=== PATIENT | female | born 1940 | race Caucasian/White ===

== ENCOUNTER 2017-12-30 09:28 | Day surgery (SDC) | payer MEDICARE ==
[2017-12-27 11:31] VITALS: BMI 25.0
--- NOTE | 2017-12-30 06:34 | HP ---
HISTORY AND PHYSICAL CHIEF COMPLAINT: Perforation of the right tympanic membrane. HISTORY OF PRESENT ILLNESS: This patient is a 77-year-old female who was recently seen in my office for evaluation of decreased hearing in the right ear. It is to be noted the patient was seen in in 2009 and at that time underwent insertion of a Kartush patch. The patient had done well, but was subsequently lost to follow up. She recently noted that the hearing in the right ear had significantly decreased. At the time that she was seen in the office, clinical examination of the ear revealed the patch had dislodged and that she once again had an open central perforation encompassing approximately 20% of the right tympanic membrane. Middle ear space appeared to be free of any cholesteatoma or infection and the middle ear ossicles appear to be intact. It was recommended the patient undergo re-insertion of a Kartush patch under either IV sedation with MAC or a general anesthesia, depending upon the anesthesia department's preference. PAST MEDICAL HISTORY: Past medical history reveals the patient has no known allergies to medications. Her current medications include atenolol, levothyroxine, glimepiride, losartan, atorvastatin, trazodone, Advil, and multiple vitamins. PREVIOUS SURGERIES: Previous surgeries include insertion of a right Kartush patch, bilateral cataract surgery, colonoscopy, and partial hysterectomy. She is 2 para, 2 , 0 miscarriage. REVIEW OF SYSTEMS: Cardiovascular is positive for hypertension. Respiratory is negative. Metabolic endocrine is positive for hypercholesterolemia, type 2 diabetes mellitus and hypothyroidism. The remainder of the review of systems is essentially unremarkable. PHYSICAL EXAMINATION: This patient is a very pleasant 77-year-old female who is alert and cooperative. HEENT EXAMINATION: Patient is normocephalic. Left tympanic membrane is unremarkable. Right tympanic membrane has a central perforation. Pupils are equal, round, react to light accommodation. Extraocular movements are within normal limits. Intranasal examination reveals moderate to severe septal deviation with compensatory hypertrophy of the inferior turbinates bilaterally. Examination of oropharynx, palpation of the neck, cranial nerves 2 through 12 and the remainder of the head and neck exam are within normal limits. CHEST/CARDIOVASCULAR: Both lung gray are clear to percussion and auscultation. The patient is in regular sinus rhythm, S1, S2 present. No murmurs, S3s or S4s. Peripheral pulses are bilaterally symmetrical and within normal limits. ABDOMEN: There is no evidence of any masses, megaly, or tenderness. The abdomen is soft. Skin is unremarkable. Musculoskeletal and neurological are within normal limits. PELVIC/RECTAL EXAMINATION: The pelvic rectal exam is deferred at this time because the patient has this done on a regular basis at her family physician's office. The remainder of the physical exam is unremarkable. IMPRESSION: Perforation of the right tympanic membrane. PLAN: The patient is scheduled undergo insertion of a Kartush patch under either IV sedation with MAC or general anesthesia, depending upon the anesthesia department's preference. ATTENTION RNS IN THE PRE-SURGICAL AREA: I have not ordered any pre-surgical prophylactic antibiotics for this patient. If the pharmacy department sends any pre- surgical prophylactic antibiotics to the pre-surgical area for this patient, that order should be cancelled and the medication should be returned to the pharmacy department. Please make sure that the pharmacy department credits the patient's account appropriately. I have discussed the risks, benefits and alternative therapies for the above-mentioned procedure and for both sedation/analgesia as well as necessary blood product administration, if indicated, as they pertain to this patient. The patient has indicated his or her understanding and acceptance of the risks and procedures discussed. MMODL / IJN: [id number] /
[~2017-12-30 09:28] MED LIST: LACTATED RINGERS 1,000 ML IV SCH; Pre Op ABX Message 1 EACH MISC MISCELLANE ONE
[2017-12-30 11:13] VITALS: RESP 18; TEMP 98.4
[2017-12-30 11:15] LABS: Glucose,Whole Blood 132 mg/dL (75-99)
[2017-12-30] MEDS ORDERED: LIDOCAINE 1% 20 ML VIAL (10MG/ML) FOR IV START INTRADERMA ONE (11:17)
[2017-12-30] MEDS ORDERED: PROPOFOL 10 MG/ML 20 ML VIAL IV ONE (11:45)
[2017-12-30] MEDS ORDERED: MIDAZOLAM 2 MG/2 ML VIAL ONE (11:45)
[2017-12-30] MEDS ORDERED: fentaNYL (PF) 50 MCG/ML 2 ML AMP ONE (11:45)
[2017-12-30] MEDS ORDERED: LIDOCAINE 1% INJ 10MG/ML (20 ML MDV) ONE (11:45)
[2017-12-30] MEDS ORDERED: OFLOXACIN 0.3% OPHTH DROPS 5 ML BOTTLE RIGHT EAR ONE ×2 (11:58→12:19)
[2017-12-30 13:22] LABS: Glucose,Whole Blood 109 mg/dL (75-99)
[2017-12-30 13:28] VITALS: BP 162/72; PULSE 85
--- NOTE | 2018-01-05 12:02 | OP ---
OPERATIVE REPORT DATE OF SURGERY: 12/30/2017 PREOPERATIVE DIAGNOSIS: Perforation of the right tympanic membrane. POSTOPERATIVE DIAGNOSIS: Perforation of the right tympanic membrane. ANESTHESIA: IV sedation with MAC. OPERATIVE PROCEDURE: Insertion of a 5 mm Kartush patch to a perforation of the right tympanic membrane. OPERATING SURGEON: Dr. Hauser. COMPLICATIONS: None. OPERATIVE PROCEDURE: Patient was placed on operating table in supine position and after an uneventful IV sedation, satisfactory sedation was obtained. Next, the patient's right ear was draped in the usual customary fashion. Next, using the Zeiss operating microscope and a #3 aural speculum, the right external auditory canal was cleansed of all wax and debris. Next, a 5 mm Kartush patch was inserted in the perforation of the right tympanic membrane using a pair of Jeromy forceps. At this point, the procedure was terminated. There were no intraoperative complications. Patient tolerated procedure well and was returned to recovery room in satisfactory condition indication. MMODL / IJN: [id number] /
== END 2017-12-30 14:00 | disposition home or self-care (01) ==
LOC: OR 09:28
PROVIDERS: ATTEND Otolaryngology
DX: H72.91 Unspecified perforation of tympanic membrane, right ear (principal); I10 Essential (primary) hypertension; E78.00 Pure hypercholesterolemia, unspecified; E11.9 Type 2 diabetes mellitus without complications; E03.9 Hypothyroidism, unspecified; Z79.84 Long term (current) use of oral hypoglycemic drugs; Z79.1 Long term (current) use of non-steroidal anti-inflammatories (NSAID); Z79.890 Hormone replacement therapy; Z79.899 Other long term (current) drug therapy
CPT/HCPCS: 69610; J2250; J2001; J3010; J2704

== ENCOUNTER 2018-10-17 12:23 | Inpatient (IN) | payer MEDICARE ==
[2018-10-17] MEDS ORDERED: DEXTROSE 50%-WATER 50 ML SYRINGE IVP STA (12:46)
[2018-10-17 12:54] LABS: Glucose,Whole Blood 62 mg/dL (75-99)
--- NOTE | 2018-10-17 13:03 | ED ---
General Adult HPI - General Chief complaint: Syncope Stated complaint: fall Time Seen by Provider: 10/17/18 12:27 Source: patient Mode of arrival: EMS Limitations: physical limitation - History of Present Illness Initial comments: Dictation was produced using [employer] dictation software. please excuse any grammatical, word or spelling errors. Chief Complaint: 78-year-old female past medical history of non-insulin- dependent diabetes mellitus, hearing disorder, hypertension, dyslipidemia presents with fall. History of Present Illness: Patient is 78-year-old female presents after fall. EMS arrived on scene and found the patient had a blood glucose of 44. Patient does not take insulin. She takes a sulfonylurea for blood sugar control. Patient states she does not know how long she was down to around 4. She is not sure if she lost consciousness. She was able to crawl to a phone to notify her daughter who lives approximately 20 minutes away. EMS was called patient's transfer to emergency department. Patient complains of total body pain. She does complain of however worsening pain to the left humerus and left femur. Patient has a normal tremor however her tremors worse today per her daughter. The ROS documented in this emergency department record has been reviewed and confirmed by me. Those systems with pertinent positive or negative responses have been documented in the HPI. All other systems are other negative and/or noncontributory. PHYSICAL EXAM: General Impression: Alert and oriented x3, not in acute distress, tremulous HEENT: Normocephalic atraumatic, extra-ocular movements intact, pupils equal and reactive to light bilaterally, mucous membranes moist. Cardiovascular: Heart regular rate and rhythm, S1&S2 audible, no murmurs, rubs or gallops Chest: Lungs clear to auscultation bilaterally, no rhonchi, no wheeze, no rales Abdomen: Bowel sounds present, abdomen soft, non-tender, non-distended, no organomegaly Musculoskeletal: Pulses present and equal in all extremities, no peripheral edema, all extremities ranged and removed without complications Motor: Power 5/5 bilaterally, no focal deficits noted Neurological: CN II-XII grossly intact, no focal motor or sensory deficits noted Skin: Intact with no visualized rashes Psych: Normal affect and mood ED course: 78-year-old female presents after fall. She is also has hypoglycemia. She was given oral glucose by EMS with improvement of blood sugar however her sugar dropped again. Vital signs upon arrival are within acceptable limits. Patient's glucose in the emergency department was rechecked found to be 62. Patient given oral and IV dextrose.Laboratory evaluation obtained. CBC, metabolic panels obtained and found to be unremarkable. Patient does have mild elevation crowding kinase likely secondary to non- exertional rhabdo mildly. Urinalysis shows mild dehydration. There is 10 white blood cells. Patient's serial blood glucose is improved. Attempt was made to send patient home however she felt too weak and didn't fill comfortable at home given that she lives at home by herself. Patient is unable to ambulate without complications. Given patient fall risk and social situation we'll plan to have patient admitted for physical therapy, blood glucose monitoring, intravenous rehydration. Imaging studies were obtained. CT head, C-spine, chest x-ray, pelvis x-ray, left humerus and left femur x-rays were all negative for acute traumatic processes. EKG interpretation: Ventricular rate 80, normal sinus rhythm, WA interval 156, QS 80, QTc 431. No WA prolongation, no QTC prolongation, no ST or T-wave changes noted. Overall, this EKG is unremarkable - Related Data Home Medications Medication Instructions Recorded Confirmed Aspirin [Adult Low Dose Aspirin EC] 81 mg PO DAILY 12/27/17 10/17/18 Atenolol/Chlorthalidone 1 each PO DAILY 12/27/17 10/17/18 [Atenolol-Chlorthalidone 50-25] Atorvastatin Calcium [Lipitor] 10 mg PO HS 12/27/17 10/17/18 Calcium Citrate/Vitamin D3 1 tab PO HS 12/27/17 10/17/18 [Calcitrate + Vit D Caplet] Glimepiride [Amaryl] 1 mg PO AC-BID 12/27/17 10/17/18 Levothyroxine Sodium [Synthroid] 88 mcg PO DAILY 12/27/17 10/17/18 Losartan Potassium [Cozaar] 100 mg PO DAILY 12/27/17 10/17/18 Multivit-Min/FA/Lycopen/Lutein 1 each PO DAILY 12/27/17 10/17/18 [Centrum Silver Tablet] buPROPion HCL [buPROPion HCL SR] 150 mg PO BID 12/27/17 10/17/18 traZODone HCL [Desyrel] 100 mg PO HS 12/27/17 10/17/18 Allergies Allergy/AdvReac Type Severity Reaction Status Date / Time No Known Allergies Allergy Verified 10/17/18 14:03 Review of Systems ROS Statement: Those systems with pertinent positive or pertinent negative responses have been documented in the HPI. ROS Other: All systems not noted in ROS Statement are negative. 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 History of Any Multi-Drug Resistant Organisms: None Reported Past Surgical History: Ear Surgery, Hysterectomy Additional Past Surgical History / Comment(s): RT EAR SURG. Past Anesthesia/Blood Transfusion Reactions: No Reported Reaction Past Psychological History: Depression Smoking Status: Former smoker Past Alcohol Use History: None Reported Past Drug Use History: None Reported - Past Family History Brother(s) Family Medical History: Cancer General Exam Limitations: physical limitation Course Vital Signs 10/17/18 10/17/18 10/17/18 12:38 13:51 15:00 Temperature 98.3 F Pulse Rate 75 77 74 Respiratory 18 20 18 Rate Blood Pressure 173/79 175/98 159/121 O2 Sat by Pulse 99 100 98 Oximetry 10/17/18 16:39 Temperature Pulse Rate 80 Respiratory 18 Rate Blood Pressure 164/79 O2 Sat by Pulse 98 Oximetry Medical Decision Making - Lab Data Result diagrams: 10/17/18 13:05 10/17/18 13:05 Lab Results 10/17/18 10/17/18 10/17/18 Range/Units 12:34 13:05 13:05 WBC 4.0 (3.8-10.6) k/uL RBC 4.29 (3.80-5.40) m/uL Hgb 13.6 (11.4-16.0) gm/dL Hct 41.4 (34.0-46.0) % MCV 96.5 (80.0-100.0) fL MCH 31.8 (25.0-35.0) pg MCHC 32.9 (31.0-37.0) g/dL RDW 13.3 (11.5-15.5) % Plt Count 122 L (150-450) k/uL Neutrophils % 79 % Lymphocytes % 10 % Monocytes % 8 % Eosinophils % 1 % Basophils % 0 % Neutrophils # 3.1 (1.3-7.7) k/uL Lymphocytes # 0.4 L (1.0-4.8) k/uL Monocytes # 0.3 (0-1.0) k/uL Eosinophils # 0.0 (0-0.7) k/uL Basophils # 0.0 (0-0.2) k/uL Sodium 138 (137-145) mmol/L Potassium 3.7 (3.5-5.1) mmol/L Chloride 102 (98-107) mmol/L Carbon Dioxide 26 (22-30) mmol/L Anion Gap 10 mmol/L BUN 24 H (7-17) mg/dL Creatinine 0.95 (0.52-1.04) mg/dL Est GFR (CKD-EPI)AfAm 68 (>60 ml/min/1.73 sqM) Est GFR (CKD-EPI)NonAf 59 (>60 ml/min/1.73 sqM) Glucose 90 (74-99) mg/dL POC Glucose (mg/dL) 62 L (75-99) mg/dL POC Glu Waste Recycler ID Shona [place] Calcium 9.3 (8.4-10.2) mg/dL Magnesium 1.6 (1.6-2.3) mg/dL Total Bilirubin 0.7 (0.2-1.3) mg/dL AST 47 H (14-36) U/L ALT 40 (9-52) U/L Alkaline Phosphatase 49 (38-126) U/L Creatine Kinase 641 H (30-135) U/L Total Protein 6.3 (6.3-8.2) g/dL Albumin 4.3 (3.5-5.0) g/dL Lipase 73 (23-300) U/L Urine Color Urine Appearance (Clear) Urine pH (5.0-8.0) Ur Specific [place] (1.001-1.035) Urine Protein (Negative) Urine Glucose (UA) (Negative) Urine Ketones (Negative) Urine Blood (Negative) Urine Nitrite (Negative) Urine Bilirubin (Negative) Urine Urobilinogen (<2.0) mg/dL Ur Leukocyte Esterase (Negative) Urine RBC (0-5) /hpf Urine WBC (0-5) /hpf Ur Squamous Epith Cells (0-4) /hpf Urine Bacteria (None) /hpf Hyaline Casts (0-2) /lpf Urine Mucus (None) /hpf 10/17/18 10/17/18 10/17/18 Range/Units 13:50 14:33 14:58 WBC (3.8-10.6) k/uL RBC (3.80-5.40) m/uL Hgb (11.4-16.0) gm/dL Hct (34.0-46.0) % MCV (80.0-100.0) fL MCH (25.0-35.0) pg MCHC (31.0-37.0) g/dL RDW (11.5-15.5) % Plt Count (150-450) k/uL Neutrophils % % Lymphocytes % % Monocytes % % Eosinophils % % Basophils % % Neutrophils # (1.3-7.7) k/uL Lymphocytes # (1.0-4.8) k/uL Monocytes # (0-1.0) k/uL Eosinophils # (0-0.7) k/uL Basophils # (0-0.2) k/uL Sodium (137-145) mmol/L Potassium (3.5-5.1) mmol/L Chloride (98-107) mmol/L Carbon Dioxide (22-30) mmol/L Anion Gap mmol/L BUN (7-17) mg/dL Creatinine (0.52-1.04) mg/dL Est GFR (CKD-EPI)AfAm (>60 ml/min/1.73 sqM) Est GFR (CKD-EPI)NonAf (>60 ml/min/1.73 sqM) Glucose (74-99) mg/dL POC Glucose (mg/dL) 275 H 244 H (75-99) mg/dL POC Glu Waste Recycler ID Petitpren, Esther Petitpren, Esther Calcium (8.4-10.2) mg/dL Magnesium (1.6-2.3) mg/dL Total Bilirubin (0.2-1.3) mg/dL AST (14-36) U/L ALT (9-52) U/L Alkaline Phosphatase (38-126) U/L Creatine Kinase (30-135) U/L Total Protein (6.3-8.2) g/dL Albumin (3.5-5.0) g/dL Lipase (23-300) U/L Urine Color Yellow Urine Appearance Clear (Clear) Urine pH 6.0 (5.0-8.0) Ur Specific [place] 1.011 (1.001-1.035) Urine Protein 1+ H (Negative) Urine Glucose (UA) 4+ H (Negative) Urine Ketones 1+ H (Negative) Urine Blood Moderate H (Negative) Urine Nitrite Negative (Negative) Urine Bilirubin Negative (Negative) Urine Urobilinogen <2.0 (<2.0) mg/dL Ur Leukocyte Esterase Small H (Negative) Urine RBC 3 (0-5) /hpf Urine WBC 10 H (0-5) /hpf Ur Squamous Epith Cells 2 (0-4) /hpf Urine Bacteria Rare H (None) /hpf Hyaline Casts 1 (0-2) /lpf Urine Mucus Rare H (None) /hpf Disposition Clinical Impression: Generalized weakness Disposition: ADMITTED IP TO THIS [facility] Condition: Good Referrals: Dean Holloway MD [Primary Care Provider] - 1-2 days Decision Time: 17:48
[2018-10-17 13:35] LABS: Basophils % (A) 0 %; Eosinophils % (A) 1 %; HCT 41.4 % (34.0-46.0); HGB 13.6 gm/dL (11.4-16.0); Lymphocytes # (A) 0.4 k/uL (1.0-4.8); Lymphocytes % (A) 10 %; MCH 31.8 pg (25.0-35.0); MCHC 32.9 g/dL (31.0-37.0); MCV 96.5 fL (80.0-100.0); Mean Platelet Volume 7.7; Monocytes # (A) 0.3 k/uL (0-1.0); Monocytes % (A) 8 %; Neutrophils # (A) 3.1 k/uL (1.3-7.7); Neutrophils % (A) 79 %; Platelet Count 122 k/uL (150-450); RBC 4.29 m/uL (3.80-5.40); RDW 13.3 % (11.5-15.5)
[2018-10-17 13:36] LABS: Albumin 4.3 g/dL (3.5-5.0); Calcium 9.3 mg/dL (8.4-10.2); Magnesium 1.6 mg/dL (1.6-2.3); Potassium 3.7 mmol/L (3.5-5.1); Total Bilirubin 0.7 mg/dL (0.2-1.3); Total Protein 6.3 g/dL (6.3-8.2)
[2018-10-17 13:51] LABS: Glucose,Whole Blood 275 mg/dL (75-99)
--- NOTE | 2018-10-17 14:14 | CT ---
EXAMINATION TYPE: CT brain vaishali an DATE OF EXAM: 10/17/2018 COMPARISON: None HISTORY: Fall, trauma and pain CT DLP: 1231.5 mGycm Automated exposure control for dose reduction was used. TECHNIQUE: CT scan of the head and cervical spine are performed without contrast. FINDINGS: There is no acute intracranial hemorrhage, mass effect, or midline shift identified. The ventricles and sulci are within normal limits in size. Mild cortical atrophy is likely age-related. White matter low-attenuation is likely related to chronic small vessel ischemia. There are cerebral vascular calcifications present. The globes are intact and the visualized sinuses are remarkable for postop change to the left maxillary sinus, there is calcified focus within the left maxillary sinus m easuring approximately 12 mm in greatest dimension with some associated inflammatory change, some scl erosis along the wall of the maxillary sinus may be due to chronic infection. Cervical spine is visualized in its entirety from C1 through upper thoracic levels and demonstrates s atisfactory alignment without evidence of acute fracture or dislocation. Prevertebral soft tissue ap pears within normal limits. The C1-C2 articulation is unremarkable. There is multilevel spondylosis. Loss of disc height present at C4-5, C5-6 and C6-7. Minimal anterolisthesis grade 1 C6-7. There is m ultilevel foraminal encroachment. Posterior broad-based disc bulge C3-4, C4-5, C5-6 and T6-7 causes m ild anterior mass effect on the thecal sac.. There is multilevel facet arthropathy. IMPRESSION: 1. There is no acute fracture or dislocation evident in the cervical spine. 2. No acute intracranial hemorrhage, mass effect, or midline shift is seen. 3. Suspect chronic sinusitis left maxillary sinus, postop changes
[2018-10-17 14:51] LABS: Appearance,Urine Clear (Clear); Bacteria,Urine Rare /hpf; Bilirubin,Urine Negative (Negative); Blood,Urine Moderate (Negative); Color,Urine Yellow; Glucose,Urine (UA) 4+ (Negative); Hyaline Casts,Urine 1 /lpf (0-2); Ketones,Urine 1+ (Negative); Leukocyte Esterase,Urine Small (Negative); Mucus,Urine Rare /hpf; Nitrite,Urine Negative (Negative); Protein,Urine 1+ (Negative); RBC,Urine 3 /hpf (0-5); Specific Gravity,Urine 1.011 (1.001-1.035); Squamous Epithelial Cell,Urine 2 /hpf (0-4); Urobilinogen,Urine <2.0 mg/dL (<2.0)
[2018-10-17 15:02] LABS: Glucose,Whole Blood 244 mg/dL (75-99)
--- NOTE | 2018-10-17 15:18 | XR ---
EXAMINATION TYPE: XR pelvis AP view, XR femur LT DATE OF EXAM: 10/17/2018 CLINICAL HISTORY: Pelvic and left femur pain after fall injury. TECHNIQUE: A single AP view of the pelvis is obtained. Two views of the left femur are obtained. COMPARISON: None. FINDINGS: There is no acute fracture/dislocation evident in the pelvis. Moderate to severe axial joint space lo ss and acetabular spurring in both hips is seen, right slightly worse than left. Sacroiliac joints ar e maintained. Scattered pelvic phleboliths are identified. Two views of left femur show no acute fracture or dislocation. The visualized left knee joint is felt within normal limits. Some medial vascular calcification is present. IMPRESSION: There is no acute fracture or dislocation in the pelvis or left femur.
--- NOTE | 2018-10-17 15:26 | XR ---
EXAMINATION TYPE: XR humerus LT DATE OF EXAM: 10/17/2018 CLINICAL HISTORY: Fall injury with pain. TECHNIQUE: Two views of the left humerus are obtained. COMPARISON: None. FINDINGS: There is no acute fracture or dislocation seen in the left humerus. Degenerative change le ft glenohumeral and acromioclavicular joints is present. There is degenerative spurring ulnohumeral a rticulation. The overlying soft tissue appears within normal limits. IMPRESSION: No acute fracture or dislocation is evident in the left humerus.
--- NOTE | 2018-10-17 15:57 | XR ---
EXAMINATION TYPE: XR chest 1V portable DATE OF EXAM: 10/17/2018 COMPARISON: NONE HISTORY: Fall injury with chest pain. TECHNIQUE: 2 frontal views of the chest are obtained. FINDINGS: There is moderate biapical pleural/parenchymal scarring. There is additional patchy left ba silar linear scarring and/or atelectasis. There is no focal air space opacity, pleural effusion, or p neumothorax seen. The cardiac silhouette size is mildly enlarged. Multilevel spurring in the lower t horacic spine is present. IMPRESSION: Mild cardiomegaly and chronic parenchymal changes without acute pulmonary process.
[2018-10-17] MEDS ORDERED: NALOXONE 0.4 MG/ML 1 ML VIAL IV PRN (17:14)
[2018-10-17] MEDS ORDERED: GLIMEPIRIDE 1 MG TAB PO SCH (17:30)
[2018-10-17] MEDS: SODIUM CHLORIDE 0.9% 1,000 ML IV SCH (17:33)
[2018-10-17] MEDS ORDERED: DEXTROSE 5%-0.2% NACL 1,000 ML IV SCH (20:00)
[2018-10-17 20:01] LABS: Glucose,Whole Blood 244 mg/dL (75-99)
[2018-10-17] MEDS: ATORVASTATIN 10 MG TAB PO SCH (20:40)
[2018-10-17] MEDS: buPROPion SR 150 MG TABLET.ER PO SCH (20:41)
[2018-10-17] MEDS: traZODone HCL 100 MG TAB PO SCH (20:41)
[2018-10-17] MEDS: ACETAMINOPHEN TAB 325 MG TAB PO PRN (23:08)
[2018-10-17] MEDS: DEXTROSE 5%-0.2% NACL 500 ML IV SCH (23:15)
[2018-10-18 02:08] LABS: Glucose,Whole Blood 227 mg/dL (75-99)
[2018-10-18] MEDS: DEXTROSE 5%-0.2% NACL 500 ML IV SCH ×2 (05:47→11:55)
[2018-10-18] MEDS: LEVOTHYROXINE 88 MCG TAB PO SCH (05:49)
[2018-10-18 07:05] LABS: Glucose,Whole Blood 286 mg/dL (75-99)
[2018-10-18] MEDS: LOSARTAN 50 MG TAB PO SCH (07:46)
[2018-10-18] MEDS: ATENOLOL 50 MG TAB PO SCH (07:46)
[2018-10-18] MEDS: CHLORTHALIDONE 25 MG TAB PO SCH (07:46)
[2018-10-18] MEDS: ASPIRIN 81 MG PO SCH (07:46)
[2018-10-18] MEDS: buPROPion SR 150 MG TABLET.ER PO SCH ×2 (07:47→21:00)
[2018-10-18 07:53] LABS: HCT 35.3 % (34.0-46.0); HGB 11.9 gm/dL (11.4-16.0); MCH 31.7 pg (25.0-35.0); MCHC 33.6 g/dL (31.0-37.0); MCV 94.3 fL (80.0-100.0); Mean Platelet Volume 8.1; Platelet Count 115 k/uL (150-450); RBC 3.75 m/uL (3.80-5.40); RDW 13.2 % (11.5-15.5); WBC 3.7 k/uL (3.8-10.6)
[2018-10-18 08:08] LABS: Calcium 8.4 mg/dL (8.4-10.2)
[2018-10-18 08:13] LABS: Potassium 2.7 mmol/L (3.5-5.1)
[2018-10-18] MEDS ORDERED: PANTOPRAZOLE 40 MG/10 ML VIAL IV SCH (09:00)
[2018-10-18] MEDS ORDERED: Potassium Replacement Protocol 1 EACH MISC MISCELLANE PRN (09:09)
[2018-10-18] MEDS ORDERED: POTASSIUM CHLORIDE 20 MEQ in WATER FOR INJECTION 1 100ML.BAG IVPB SCH (09:15)
[2018-10-18] MEDS: POTASSIUM CHLORIDE ER 20 MEQ TAB.ER PO SCH ×3 (09:28→13:01)
[2018-10-18] MEDS: ACETAMINOPHEN TAB 325 MG TAB PO PRN ×2 (09:28→17:21)
[2018-10-18 11:16] LABS: Glucose,Whole Blood 259 mg/dL (75-99)
[2018-10-18] MEDS: INSULIN ASPART (NovoLOG) 100 UNIT/ML VIAL SQ SCH ×2 (13:02→18:04)
[2018-10-18] MEDS: DEXTROSE 5%-0.2% NACL 1,000 ML IV SCH (13:18)
[2018-10-18] MEDS ORDERED: ACETAMINOPHEN TAB 325 MG TAB PO PRN (14:29)
[2018-10-18 16:37] LABS: Glucose,Whole Blood 123 mg/dL (75-99)
--- NOTE | 2018-10-18 17:47 | HP ---
HISTORY AND PHYSICAL DATE OF ADMISSION: 10/17/2018 CHIEF COMPLAINT: General weakness and syncope with fall and left-sided arm, hip and chest pain. HISTORY OF PRESENT ILLNESS: This is another admission for this 78-year-old white female with type 2 diabetes and hypertension. She has been under fairly good control. She has not been feeling well of late and has not been eating well. On the day of admission she suddenly became very weak and fell. It sounds like she might have been a little bit confused. She did not have any chest pain, palpitations, focal neurologic signs or symptoms, etc. When she came emergency room, her blood sugars around 40. She was also dehydrated. She lives alone, and this is beginning to be a concern to her. REVIEW OF SYSTEMS: She denies any diplopia, focal neurologic deficits, shortness of breath, cough, hemoptysis, chest pain, palpitations, orthopnea, PND, diaphoresis, abdominal pain, nausea, vomiting, hematemesis, melena, hematochezia, jaundice, hematuria, frequency, urgency, renal failure, incontinence, etc. Past medical history, family history, and personal and social histories reveal that SHE HAS NO ALLERGIES. She takes: 1. Tenoretic 50-25 once a day. 2. Bupropion 150 mg twice a day. 3. Levothyroxine 0.088 mg a day. 4. Glimepiride 1 mg twice a day. 5. Trazodone 100 mg at bedtime p.r.n. 6. Losartan 100 mg once a day. 7. Atorvastatin 10 mg once a day. 8. Lomotil p.r.n. 9. Aspirin 81 mg. She used to smoke but does not any longer. She does not drink. PHYSICAL EXAMINATION: Blood pressure 120/90 with a pulse of 90, respirations of 35, and she is afebrile. In general she appeared to be small, slightly dehydrated, in no acute distress. Skin was dry and lymph nodes were not enlarged. Head, ears, eyes, nose, mouth and throat were normal except for dry mucous membranes. Neck veins were not distended. Thyroid was not enlarged. Chest was clear. Cardiac exam was normal. No murmurs or extra sounds. Abdomen was soft, nontender. Bowel sounds were present. Extremities were normal. Neurologically she seemed to be a bit less sharp than normal. She denies any focal neurologic signs or symptoms. Neck is supple. Pupils equal and round. Strength seems to be normal and symmetrical. Toes are downgoing. She is admitted to the hospital with the diagnoses: 1. Generalized weakness. 2. Hypokalemia. 3. Type 2 diabetes mellitus. 4. Hypertension. 5. Dehydration. PLAN: 1. Bed rest. 2. IV fluids. 3. Correct hypoglycemia. 4. Stop glimepiride. 5. OT and PT. 6. Look into discharge planning. MMODL / IJN: [id number] /
--- NOTE | 2018-10-18 17:56 | PN ---
PROGRESS NOTE DATE OF SERVICE: 10/18/2018 CHIEF COMPLAINT: Hypoglycemia with fall and slight mental status changes. HISTORY OF PRESENT ILLNESS: This lady is fairly comfortable but is not back to normal yet. She seems a little bit foggy and not as bright cognitively is normal. Blood sugars are better. PHYSICAL EXAMINATION: Chest is clear. Cardiac exam is normal. She is a little tender on the left side of the chest. IMPRESSION: 1. Syncopal episode, probably due to hypoglycemia. 2. Contusion of the left shoulder and left-sided chest as well as left hip. 3. Mental status changes. 4. Generalized weakness. PLAN: 1. Discharge planning. She may require physical therapy or long-term care. 2. Correct hypokalemia. 3. PT and OT. BELKIS / KRUPAN: [id number] /
[2018-10-18] MEDS: SODIUM CHLORIDE 0.9% 1,000 ML IV SCH (19:41)
[2018-10-18 19:57] LABS: Glucose,Whole Blood 137 mg/dL (75-99)
[2018-10-18] MEDS: traZODone HCL 100 MG TAB PO SCH (21:00)
[2018-10-18] MEDS: ATORVASTATIN 10 MG TAB PO SCH (21:00)
[2018-10-19] MEDS: DEXTROSE 5%-0.2% NACL 1,000 ML IV SCH ×3 (00:26→20:15)
[2018-10-19 02:33] LABS: Glucose,Whole Blood 209 mg/dL (75-99)
[2018-10-19] MEDS ORDERED: LEVOTHYROXINE 88 MCG TAB ONE (06:05)
[2018-10-19] MEDS ORDERED: ACETAMINOPHEN TAB 325 MG TAB ONE (06:05)
[2018-10-19] MEDS: LEVOTHYROXINE 88 MCG TAB PO SCH (06:16)
[2018-10-19 07:23] LABS: Glucose,Whole Blood 262 mg/dL (75-99)
[2018-10-19] MEDS: ATENOLOL 50 MG TAB PO SCH (07:37)
[2018-10-19] MEDS: ACETAMINOPHEN TAB 325 MG TAB PO PRN ×2 (07:38→16:32)
[2018-10-19] MEDS: buPROPion SR 150 MG TABLET.ER PO SCH ×2 (07:38→20:13)
[2018-10-19] MEDS: LOSARTAN 50 MG TAB PO SCH (07:38)
[2018-10-19] MEDS: ASPIRIN 81 MG PO SCH (07:38)
[2018-10-19] MEDS: CHLORTHALIDONE 25 MG TAB PO SCH (07:38)
[2018-10-19] MEDS: PANTOPRAZOLE 40 MG TABLET PO SCH (07:38)
[2018-10-19] MEDS: INSULIN ASPART (NovoLOG) 100 UNIT/ML VIAL SQ SCH ×2 (07:41→17:25)
[2018-10-19 08:01] LABS: HCT 36.3 % (34.0-46.0); HGB 12.3 gm/dL (11.4-16.0); MCH 31.9 pg (25.0-35.0); MCHC 33.9 g/dL (31.0-37.0); MCV 94.1 fL (80.0-100.0); Mean Platelet Volume 7.3; Platelet Count 111 k/uL (150-450); RBC 3.86 m/uL (3.80-5.40); WBC 2.4 k/uL (3.8-10.6)
[2018-10-19 08:11] LABS: Anion Gap 10 mmol/L; Blood Urea Nitrogen 13 mg/dL (7-17); Calcium 8.1 mg/dL (8.4-10.2); Carbon Dioxide 23 mmol/L (22-30); Chloride 93 mmol/L (98-107); Glucose 228 mg/dL (74-99); Sodium 126 mmol/L (137-145)
[2018-10-19] MEDS ORDERED: ONDANSETRON 4 MG/2 ML VIAL IVP PRN (09:05)
[2018-10-19] MEDS ORDERED: Potassium Replacement Protocol 1 EACH MISC MISCELLANE PRN (09:42)
[2018-10-19] MEDS: POTASSIUM CHLORIDE ER 20 MEQ TAB.ER PO SCH ×4 (10:07→21:55)
[2018-10-19] MEDS ORDERED: Magnesium Replacement Protocol 1 EACH MISC MISCELLANE PRN (10:08)
[2018-10-19] MEDS: MAGNESIUM SULFATE-D5W PMX 1 GM in DEXTROSE/WATER 1 100ML.BAG IVPB SCH ×3 (10:41→13:01)
[2018-10-19 11:18] LABS: Basophils % (A) 0 %; Eosinophils % (A) 0 %; HCT 37.2 % (34.0-46.0); HGB 12.8 gm/dL (11.4-16.0); Lymphocytes # (A) 0.5 k/uL (1.0-4.8); Lymphocytes % (A) 17 %; MCH 31.8 pg (25.0-35.0); MCHC 34.3 g/dL (31.0-37.0); MCV 92.6 fL (80.0-100.0); Mean Platelet Volume 8.2; Monocytes # (A) 0.3 k/uL (0-1.0); Monocytes % (A) 11 %; Neutrophils % (A) 68 %; Platelet Count 126 k/uL (150-450); RBC 4.02 m/uL (3.80-5.40); RDW 13.1 % (11.5-15.5)
[2018-10-19 11:35] LABS: Glucose,Whole Blood 177 mg/dL (75-99)
--- NOTE | 2018-10-19 16:42 | PN ---
PROGRESS NOTE CHIEF COMPLAINT: Generalized weakness, hypoglycemia, dehydration, hypokalemia and hypomagnesemia. HISTORY OF PRESENT ILLNESS: This lady is still complaining that she feels extremely weak and cannot get out of bed. Potassium was corrected and then it dropped again. Magnesium is still low as well. She is having no fever, chills, shortness of breath, abdominal pain, chest pain, etc. IMPRESSION: 1. Dehydration. 2. Hypoglycemia. 3. Hypokalemia. 4. Hypomagnesemia. 5. Generalized weakness and failure to thrive. 6. Depression. PLAN: 1. Physical therapy. Occupational therapy has been ordered. 2. Discharge planning has been ordered. 3. Correct hypokalemia. 4. Try to progress activity and diet. MMODL / IJN: [id number] /
[2018-10-19 17:18] LABS: Glucose,Whole Blood 222 mg/dL (75-99)
[2018-10-19] MEDS: SODIUM CHLORIDE 0.9% 1,000 ML IV SCH (17:27)
[2018-10-19 20:04] LABS: Glucose,Whole Blood 130 mg/dL (75-99)
[2018-10-19] MEDS: ATORVASTATIN 10 MG TAB PO SCH (20:13)
[2018-10-19] MEDS: traZODone HCL 100 MG TAB PO SCH (20:13)
[2018-10-20 02:17] LABS: Glucose,Whole Blood 198 mg/dL (75-99)
[2018-10-20] MEDS: ACETAMINOPHEN TAB 325 MG TAB PO PRN (05:30)
[2018-10-20] MEDS: DEXTROSE 5%-0.2% NACL 1,000 ML IV SCH (05:41)
[2018-10-20] MEDS: LEVOTHYROXINE 88 MCG TAB PO SCH (05:47)
[2018-10-20 07:08] LABS: HCT 36.1 % (34.0-46.0); HGB 12.1 gm/dL (11.4-16.0); MCH 31.4 pg (25.0-35.0); MCHC 33.6 g/dL (31.0-37.0); MCV 93.3 fL (80.0-100.0); Mean Platelet Volume 7.9; Platelet Count 123 k/uL (150-450); RBC 3.87 m/uL (3.80-5.40); RDW 12.9 % (11.5-15.5)
[2018-10-20 07:30] LABS: Glucose,Whole Blood 190 mg/dL (75-99)
[2018-10-20 07:31] LABS: Anion Gap 7 mmol/L; Blood Urea Nitrogen 10 mg/dL (7-17); Carbon Dioxide 23 mmol/L (22-30); Chloride 94 mmol/L (98-107); Glucose 194 mg/dL (74-99); Magnesium 1.8 mg/dL (1.6-2.3); Potassium 3.7 mmol/L (3.5-5.1); Sodium 124 mmol/L (137-145)
[2018-10-20 07:44] VITALS: TEMP 98.3
[2018-10-20] MEDS: ASPIRIN 81 MG PO SCH (08:26)
[2018-10-20] MEDS: INSULIN ASPART (NovoLOG) 100 UNIT/ML VIAL SQ SCH (08:26)
[2018-10-20] MEDS: CHLORTHALIDONE 25 MG TAB PO SCH (08:27)
[2018-10-20] MEDS: LOSARTAN 50 MG TAB PO SCH (08:27)
[2018-10-20] MEDS: PANTOPRAZOLE 40 MG TABLET PO SCH (08:27)
[2018-10-20] MEDS: ATENOLOL 50 MG TAB PO SCH (08:28)
[2018-10-20] MEDS: buPROPion SR 150 MG TABLET.ER PO SCH (08:28)
[2018-10-20] MEDS ORDERED: LOPERAMIDE 2 MG CAP PO PRN (11:22)
[2018-10-20 11:52] LABS: Glucose,Whole Blood 146 mg/dL (75-99)
[2018-10-20 14:01] VITALS: BP 170/79; PULSE 60; RESP 15
[2018-10-20] MEDS ORDERED: CALCIUM CARBONATE 500 MG CHEWABLE PO PRN (14:54)
--- NOTE | 2018-10-21 13:32 | DS ---
DISCHARGE SUMMARY DATE OF SERVICE: 10/20/2018. CHIEF COMPLAINT: Generalized weakness, dehydration and hypoglycemia. HISTORY OF PRESENT ILLNESS AND PHYSICAL EXAM: The details of this lady's history and physical can be found in the initial workup. LABORATORY STUDIES: While she was in the hospital she had laboratory studies, details of which can be found in the laboratory section of her chart. COURSE IN THE HOSPITAL: After admission she was placed on bedrest, started on intravenous fluids and oral hypoglycemic was withheld. Blood sugar deborah normal and then actually eventually required a small dose of insulin management. Her strength gradually improved and she was doing fairly well. It was felt that she could go home on the . She will go home on her usual activity, diet and medication and at half of her usual dose of glimepiride. To be seen in several days. FINAL DIAGNOSES: 1. Hypoglycemia. 2. Generalized weakness. 3. Dehydration. 4. Hypertension. 5. Non-insulin dependent diabetes mellitus. OPERATIONS: None. CONSULTATIONS: None. She is improved. MMMARYANNE / KRUPAN: [id number] /
== END 2018-10-20 17:30 | disposition home health service (06) | DRG 639 ==
LOC: EC 12:23 → 4SSUR 17:15 → OBSVTOIN 10-19 11:18
PROVIDERS: ADMIT Family Medicine; ATTEND Family Medicine
DX: E11.649 Type 2 diabetes mellitus with hypoglycemia without coma (principal); E86.0 Dehydration; E83.42 Hypomagnesemia; S40.012A Contusion of left shoulder, initial encounter; E87.6 Hypokalemia; F32.9 Major depressive disorder, single episode, unspecified; E07.9 Disorder of thyroid, unspecified; R62.7 Adult failure to thrive; I10 Essential (primary) hypertension; H91.90 Unspecified hearing loss, unspecified ear; E78.5 Hyperlipidemia, unspecified; Z79.82 Long term (current) use of aspirin; Z79.890 Hormone replacement therapy; Z79.84 Long term (current) use of oral hypoglycemic drugs; Z79.899 Other long term (current) drug therapy; Z90.710 Acquired absence of both cervix and uterus; Z91.81 History of falling; Z87.891 Personal history of nicotine dependence; W19.XXXA Unspecified fall, initial encounter
CPT/HCPCS: 36415; 70450; 71045; 72125; 72170; 80048; 80053; 81001; 82550; 83690; 83735; 84132; 85025; 85027; 93005; 96374; 99285

== ENCOUNTER 2020-11-12 15:55 | Emergency (ER) | payer MEDICARE ==
[2020-11-12 17:11] VITALS: BP 137/81; PULSE 86; RESP 20; TEMP 98.3
[2020-11-12] MEDS ORDERED: ONDANSETRON 4 MG/2 ML VIAL IVP STA (17:41)
[2020-11-12] MEDS ORDERED: SODIUM CHLORIDE 0.9% 1,000 ML IV ONE (17:41)
[2020-11-12 18:23] LABS: Basophils % (A) 0 %; Eosinophils % (A) 0 %; HCT 43.9 % (34.0-46.0); HGB 15.3 gm/dL (11.4-16.0); Lymphocytes # (A) 0.8 k/uL (1.0-4.8); Lymphocytes % (A) 14 %; MCH 31.9 pg (25.0-35.0); MCV 91.1 fL (80.0-100.0); Mean Platelet Volume 7.4; Monocytes # (A) 0.5 k/uL (0-1.0); Monocytes % (A) 8 %; Neutrophils # (A) 4.4 k/uL (1.3-7.7); Neutrophils % (A) 75 %; Platelet Count 159 k/uL (150-450); RBC 4.82 m/uL (3.80-5.40); RDW 12.3 % (11.5-15.5); WBC 5.9 k/uL (3.8-10.6)
[2020-11-12 18:29] LABS: Albumin 4.2 g/dL (3.5-5.0); Calcium 9.1 mg/dL (8.4-10.2); Potassium 3.4 mmol/L (3.5-5.1); Total Bilirubin 1.3 mg/dL (0.2-1.3); Total Protein 6.5 g/dL (6.3-8.2)
[2020-11-12 19:53] LABS: Appearance,Urine Cloudy (Clear); Bilirubin,Urine Negative (Negative); Blood,Urine Negative (Negative); Color,Urine Yellow; Glucose,Urine (UA) Negative (Negative); Ketones,Urine Trace (Negative); Leukocyte Esterase,Urine Small (Negative); Nitrite,Urine Negative (Negative); Protein,Urine 2+ (Negative); RBC,Urine 2 /hpf (0-5); Specific Gravity,Urine 1.006 (1.001-1.035); Squamous Epithelial Cell,Urine 1 /hpf (0-4); Urobilinogen,Urine <2.0 mg/dL (<2.0); WBC,Urine 3 /hpf (0-5)
[2020-11-12 20:02] LABS: Amphetamine Screen,Urine Not Detected (NotDetected); Barbiturate Screen,Urine Not Detected (NotDetected); Benzodiazepines Screen,Urine Not Detected (NotDetected); Cocaine Screen,Urine Not Detected (NotDetected); Methadone Screen, Urine Not Detected (NotDetected); Opiate Screen,Urine Not Detected (NotDetected); Oxycodone Screen, Urine Not Detected (NotDetected); Phencyclidine Screen,Urine Not Detected (NotDetected); Tricyclic Antidepressant,Urine Not Detected (NotDetected); Urn Cannabinoid Scrn Not Detected (NotDetected)
--- NOTE | 2020-11-12 23:42 | ED ---
Psych HPI - General Chief Complaint: Psychiatric Symptoms Stated Complaint: Mental Health Source: patient, family Mode of arrival: ambulatory - History of Present Illness Initial Comments: 80-year-old female with past medical history of diabetes, hypertension, hyperlipidemia presents to the emergency department with depression. She was sent in by Dr. Holloway. Daughter is at bedside and helps red history. Daughter states that the patient is stating that she is suicidal. Stating to her daughter that she wants to cut her wrists. She reports that she is tired of living alone. She hasn't taken any of her medications for the past 2 days. She is also had a poor appetite. States that she is depressed because of what the world has become. She denies attempting to harm herself. Dr. Holloway sent the patient to the emergency department for a psych evaluation. Patient does have a history of depression and is prescribed medications for such. No alcohol or drug use. No other alleviating, drug abuse technician modifying factors - Related Data Home Medications Medication Instructions Recorded Confirmed Atenolol/Chlorthalidone 1 tab PO DAILY 12/27/17 11/12/20 [Atenolol-Chlorthalidone 50-25] Atorvastatin Calcium [Lipitor] 10 mg PO DAILY 12/27/17 11/12/20 Levothyroxine Sodium [Synthroid] 88 mcg PO DAILY 12/27/17 11/12/20 Losartan Potassium [Cozaar] 100 mg PO DAILY 12/27/17 11/12/20 Multivit-Min/FA/Lycopen/Lutein 1 tab PO DAILY 12/27/17 11/12/20 [Centrum Silver Tablet] buPROPion HCL [buPROPion HCL SR] 150 mg PO BID 12/27/17 11/12/20 traZODone HCL [Desyrel] 100 mg PO HS 12/27/17 11/12/20 Acetaminophen Tab [Tylenol] 650 mg PO Q6H PRN 11/12/20 11/12/20 Glimepiride [Amaryl] 1 mg PO BID 11/12/20 11/12/20 Allergies Allergy/AdvReac Type Severity Reaction Status Date / Time No Known Allergies Allergy Verified 11/12/20 17:11 Review of Systems ROS Statement: Those systems with pertinent positive or pertinent negative responses have been documented in the HPI. ROS Other: All systems not noted in ROS Statement are negative. 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 History of Any Multi-Drug Resistant Organisms: None Reported Past Surgical History: Ear Surgery, Hysterectomy Additional Past Surgical History / Comment(s): RT EAR SURG. Past Anesthesia/Blood Transfusion Reactions: No Reported Reaction Past Psychological History: Anxiety, Depression Smoking Status: Never smoker Past Alcohol Use History: None Reported Past Drug Use History: None Reported - Past Family History Brother(s) Family Medical History: Cancer General Exam Limitations: no limitations Course Vital Signs 11/12/20 17:06 Temperature 98.3 F Pulse Rate 86 Respiratory 20 Rate Blood Pressure 137/81 O2 Sat by Pulse 97 Oximetry Medical Decision Making - Medical Decision Making Upon arrival the patient is placed into room 6. There are history and physical exam is performed. Laboratory studies are conducted. Sodium mildly low at 132. Potassium 3.4. Patient is evaluated by psych services and they feel that the patient is stable for discharge home. Daughter at bedside is comfortable with this. States that she will stay with the patient. The patient is to return for any new or worsening symptoms. She was discharged home in stable condition - Lab Data Result diagrams: 11/12/20 18:13 11/12/20 18:13 Lab Results 11/12/20 11/12/20 11/12/20 Range/Units 18:13 18:13 19:49 WBC 5.9 (3.8-10.6) k/uL RBC 4.82 (3.80-5.40) m/uL Hgb 15.3 (11.4-16.0) gm/dL Hct 43.9 (34.0-46.0) % MCV 91.1 (80.0-100.0) fL MCH 31.9 (25.0-35.0) pg MCHC 35.0 (31.0-37.0) g/dL RDW 12.3 (11.5-15.5) % Plt Count 159 (150-450) k/uL MPV 7.4 Neutrophils % 75 % Lymphocytes % 14 % Monocytes % 8 % Eosinophils % 0 % Basophils % 0 % Neutrophils # 4.4 (1.3-7.7) k/uL Lymphocytes # 0.8 L (1.0-4.8) k/uL Monocytes # 0.5 (0-1.0) k/uL Eosinophils # 0.0 (0-0.7) k/uL Basophils # 0.0 (0-0.2) k/uL Sodium 132 L (137-145) mmol/L Potassium 3.4 L (3.5-5.1) mmol/L Chloride 93 L (98-107) mmol/L Carbon Dioxide 26 (22-30) mmol/L Anion Gap 13 mmol/L BUN 19 H (7-17) mg/dL Creatinine 0.92 (0.52-1.04) mg/dL Est GFR (CKD-EPI)AfAm 69 (>60 ml/min/1.73 sqM) Est GFR (CKD-EPI)NonAf 60 (>60 ml/min/1.73 sqM) Glucose 128 H (74-99) mg/dL Calcium 9.1 (8.4-10.2) mg/dL Total Bilirubin 1.3 (0.2-1.3) mg/dL AST 40 H (14-36) U/L ALT 35 H (4-34) U/L Alkaline Phosphatase 88 (38-126) U/L Total Protein 6.5 (6.3-8.2) g/dL Albumin 4.2 (3.5-5.0) g/dL Urine Color Yellow Urine Appearance Cloudy H (Clear) Urine pH 7.0 (5.0-8.0) Ur Specific [place] 1.006 (1.001-1.035) Urine Protein 2+ H (Negative) Urine Glucose (UA) Negative (Negative) Urine Ketones Trace H (Negative) Urine Blood Negative (Negative) Urine Nitrite Negative (Negative) Urine Bilirubin Negative (Negative) Urine Urobilinogen <2.0 (<2.0) mg/dL Ur Leukocyte Esterase Small H (Negative) Urine RBC 2 (0-5) /hpf Urine WBC 3 (0-5) /hpf Ur Squamous Epith Cells 1 (0-4) /hpf Urine Opiates Screen Not Detected (NotDetected) Ur Oxycodone Screen Not Detected (NotDetected) Urine Methadone Screen Not Detected (NotDetected) Ur Propoxyphene Screen Not Detected (NotDetected) Ur Barbiturates Screen Not Detected (NotDetected) U Tricyclic Antidepress Not Detected (NotDetected) Ur Phencyclidine Scrn Not Detected (NotDetected) Ur Amphetamines Screen Not Detected (NotDetected) U Methamphetamines Scrn Not Detected (NotDetected) U Benzodiazepines Scrn Not Detected (NotDetected) Urine Cocaine Screen Not Detected (NotDetected) U Marijuana (THC) Screen Not Detected (NotDetected) Disposition Clinical Impression: Depression Disposition: HOME SELF-CARE Condition: Stable Instructions (If sedation given, give patient instructions): Depression (ED) Additional Instructions: Please follow up with Dr. Holloway. Return to the ED for any new or worsening symptoms. Is patient prescribed a controlled substance at d/c from ED?: No Referrals: Dean Holloway MD [Primary Care Provider] - 1-2 days Time of Disposition: 23:42
== END 2020-11-12 23:57 | disposition home or self-care (01) ==
LOC: EC 15:55
DX: F32.9 Major depressive disorder, single episode, unspecified (principal); F41.9 Anxiety disorder, unspecified; E11.9 Type 2 diabetes mellitus without complications; E78.5 Hyperlipidemia, unspecified; I10 Essential (primary) hypertension
CPT/HCPCS: 36415; 80053; 80306; 81001; 82075; 85025; 96361; 96374; 99284

== ENCOUNTER → 2021-11-03 | Outpatient (CLI) | payer MEDICARE ==
--- NOTE | 2021-11-04 10:27 | US ---
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 Diabetic EXAM MEASUREMENTS: Right Kidney: 8.7 x 4.7 x3.6 cm Left Kidney: 7.8 x 4.8 x 3.4 cm Post Void Residual Volume: 21.9 mL Right Kidney: couple of cortical cyst seen with larger noted lateral pole = 0.9 x 0.7 x 0.7cm Left Kidney: No hydronephrosis or masses seen Bladder: wnl Bilateral Jets seen: yes Normal Post Void Residual: yes IMPRESSION: 1. Right renal cortical cyst.
== END | disposition home or self-care (01) ==
LOC: RADUSWWP 15:14
PROVIDERS: ATTEND Family Medicine
DX: N28.1 Cyst of kidney, acquired (principal); I12.9 Hypertensive chronic kidney disease with stage 1 through stage 4 chronic kidney disease, or unspecified chronic kidney disease; E11.22 Type 2 diabetes mellitus with diabetic chronic kidney disease; N18.9 Chronic kidney disease, unspecified
CPT/HCPCS: 76770

== ENCOUNTER 2023-03-17 10:53 | Emergency (ER) | payer MEDICARE ==
--- NOTE | 2023-03-17 11:26 | ED ---
General Adult HPI - General Chief complaint: Psychiatric Symptoms Stated complaint: Mental Health Time Seen by Provider: 03/17/23 11:00 Source: patient, EMS, RN notes reviewed, old records reviewed Mode of arrival: EMS Limitations: no limitations - History of Present Illness Initial comments: This is an 83-year-old female who presents emergency Department because she supposedly told someone she is suicidal. Patient completely denies at a nursing and myself. Patient does however state she would mind talking to EPS. Patient denies any physical complaints today. Patient denies any headache patient denies numbness weakness. Patient denies lightheadedness or dizziness. Patient denies any chest pain difficulty breathing shortness of breath. Patient denies any palpitations. Patient denies abdominal pain patient denies nausea vomiting diarrhea. Patient denies dysuria hematuria urinary frequency - Related Data Home Medications Medication Instructions Recorded Confirmed Atenolol/Chlorthalidone 1 tab PO DAILY 12/27/17 03/17/23 [Atenolol/Chlorthalidone 50-25] Atorvastatin Calcium [Lipitor] 10 mg PO DAILY 12/27/17 03/17/23 Levothyroxine Sodium [Synthroid] 88 mcg PO DAILY 12/27/17 03/17/23 buPROPion HCL [buPROPion HCL SR] 150 mg PO BID 12/27/17 03/17/23 traZODone HCL [Desyrel] 100 mg PO HS 12/27/17 03/17/23 Diphenoxylate HCl/Atropine 1 tab PO QID PRN 03/17/23 03/17/23 [Lomotil 2.5-0.025 mg Tablet] Losartan [Cozaar] 25 mg PO DAILY 03/17/23 03/17/23 Magnesium Oxide [Magox 400] 400 mg PO DAILY 03/17/23 03/17/23 Allergies Allergy/AdvReac Type Severity Reaction Status Date / Time No Known Allergies Allergy Verified 03/17/23 11:38 Review of Systems ROS Statement: Those systems with pertinent positive or pertinent negative responses have been documented in the HPI. ROS Other: All systems not noted in ROS Statement are negative. 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 History of Any Multi-Drug Resistant Organisms: None Reported Past Surgical History: Ear Surgery, Hysterectomy Additional Past Surgical History / Comment(s): RT EAR SURG. Past Anesthesia/Blood Transfusion Reactions: No Reported Reaction Past Psychological History: Anxiety, Depression Smoking Status: Never smoker Past Alcohol Use History: None Reported Past Drug Use History: None Reported - Past Family History Brother(s) Family Medical History: Cancer General Exam - General Exam Comments Initial Comments: GENERAL: Patient is well-developed and well-nourished. Patient is nontoxic and well- hydrated and is in mild distress. ENT: Neck is soft and supple. No significant lymphadenopathy is noted. Oropharynx is clear. Moist mucous membranes. Neck has full range of motion without eliciting any pain. EYES: The sclera were anicteric and conjunctiva were pink and moist. Extraocular movements were intact and pupils were equal round and reactive to light. Eyelids were unremarkable. PULMONARY: Unlabored respirations. Good breath sounds bilaterally. No audible rales rhonchi or wheezing was noted. CARDIOVASCULAR: There is a regular rate and rhythm without any murmurs gallops or rubs. ABDOMEN: Soft and nontender with normal bowel sounds. SKIN: Skin is clear with no lesions or rashes and otherwise unremarkable. NEUROLOGIC: Patient is alert and oriented x3. Cranial nerves II through XII are grossly intact. Motor and sensory are also intact. Normal speech, volume and content. Symmetrical smile. MUSCULOSKELETAL: Normal extremities with adequate strength and full range of motion. LYMPHATICS: No significant lymphadenopathy is noted PSYCHIATRIC: Normal psychiatric evaluation. Patient states she is depressed at times but she is not suicidal Limitations: no limitations Course Vital Signs 03/17/23 10:54 Temperature 98.1 F Pulse Rate 69 Respiratory 16 Rate Blood Pressure 175/77 O2 Sat by Pulse 100 Oximetry Medical Decision Making - Medical Decision Making Was pt. sent in by a medical professional or institution (, PA, PROFESSOR OF GEOGRAPHY, urgent care, hospital, or half-way...) When possible be specific @ -No Did you speak to anyone other than the patient for history (EMS, parent, family, police, friend...)? What history was obtained from this source @ -EMS gave is part of the history Did you review nursing and triage notes (agree or disagree)? Why? @ -I reviewed and agree with nursing and triage notes Were old charts reviewed (outside hosp., previous admission, EMS record, old EKG, old radiological studies, urgent care reports/EKG's, half-way records)? Report findings @ -No old charts were reviewed Differential Diagnosis (chest pain, altered mental status, abdominal pain women, abdominal pain men, vaginal bleeding, weakness, fever, dyspnea, syncope, headache, dizziness, GI bleed, back pain, seizure, CVA, palpatations, mental health, musculoskeletal)? @ -Differential Mental Health Depression, anxiety, bipolar, psychosis, schizophrenia, borderline personality, situational depression, adjustment disorder, behavioral disorder, brain tumor, malingering, substance abuse, encephalopathy, medication reaction, dementia, hypothyroidism, degenerative neurologic disorder, lupus.... This is not meant to be all-inclusive list EKG interpreted by me (3pts min.). @ -As above X-rays interpreted by me (1pt min.). @ -None done CT interpreted by me (1pt min.). @ -None done U/S interpreted by me (1pt. min.). @ -None done What testing was considered but not performed or refused? (CT, X-rays, U/S, labs)? Why? @ -None What meds were considered but not given or refused? Why? @ -None Did you discuss the management of the patient with other professionals (professionals i.e. , PA, PROFESSOR OF GEOGRAPHY, lab, RT, psych nurse, social services specialist, sales support engineer, teacher, officer captain, case planner)? Give summary @ -EPS evaluated the patient I spoke with them Was smoking cessation discussed for >3mins.? @ -No Was critical care preformed (if so, how long)? @ -No Were there social determinants of health that impacted care today? How? (Homelessness, low income, unemployed, alcoholism, drug addiction, transportation, low edu. Level, literacy, decrease access to med. care, shelter, rehab)? @ -No Was there de-escalation of care discussed even if they declined (Discuss DNR or withdrawal of care, Hospice)? DNR status @ -No What co-morbidities impacted this encounter? (DM, HTN, Smoking, COPD, CAD, Cancer, CVA, ARF, Chemo, Hep., AIDS, mental health diagnosis, sleep apnea, morbid obesity)? @ -None Was patient admitted / discharged? Hospital course, mention meds given and route, prescriptions, significant lab abnormalities, going to OR and other pertinent info. @ -She was given outpatient resources to follow patient was in agreement and she still denied any suicidal ideations. Undiagnosed new problem with uncertain prognosis? @ -No Drug Therapy requiring intensive monitoring for toxicity (Heparin, Nitro, Insulin, Cardizem)? @ -No Were any procedures done? @ -No Diagnosis/symptom? @ -Situational depression Acute, or Chronic, or Acute on Chronic? @ -Acute Uncomplicated (without systemic symptoms) or Complicated (systemic symptoms)? @ -Uncomplicated Side effects of treatment? @ -No Exacerbation, Progression, or Severe Exacerbation? @ -No Poses a threat to life or bodily function? How? (Chest pain, [place], PA, pneumonia, PE, COPD, DKA, ARF, appy, cholecystitis, CVA, Diverticulitis, Homicidal, Suicidal, threat to staff... and all critical care pts) @ -No Disposition Clinical Impression: Situational depression Disposition: HOME SELF-CARE Condition: Good Instructions (If sedation given, give patient instructions): Depression (ED) Is patient prescribed a controlled substance at d/c from ED?: No Referrals: Dean Holloway MD [Primary Care Provider] - 1-2 days Time of Disposition: 13:39
[2023-03-17 13:48] VITALS: BP 150/77; PULSE 62; RESP 18; TEMP 98
== END 2023-03-17 13:53 | disposition home or self-care (01) ==
LOC: EC 10:53
DX: F32.A Depression, unspecified (principal); E11.9 Type 2 diabetes mellitus without complications; I10 Essential (primary) hypertension; E78.5 Hyperlipidemia, unspecified; E07.9 Disorder of thyroid, unspecified; F41.9 Anxiety disorder, unspecified; Z79.890 Hormone replacement therapy; Z79.899 Other long term (current) drug therapy
CPT/HCPCS: 82075; 99284

== ENCOUNTER → 2023-09-19 | Outpatient (CLI) | payer MEDICARE ==
--- NOTE | 2023-09-19 15:06 | CT ---
EXAMINATION TYPE: CT sinus wo con DATE OF EXAM: 09/19/2023 COMPARISON: None HISTORY: Calcification of left maxillary sinus. CT DLP: 493.[address] of the paranasal sinuses was performed in the axial and coronal planes. Bone and soft tissue settings are submitted. The paranasal sinuses demonstrate normal aeration and development. There is a calcific density at the base of the left maxillary sinus which could reflect ectopic tooth measuring 1.4 x 1.1 cm. There is evidence of medial maxillary antrectomy. Mucosal thickening mild in the left maxillary sinus. Right maxillary sinus is patent. Mild mucosal thickening of anterior ethmo id air cells on the left. Frontal sinus and sphenoid sinus are well aerated. The osteal meatal units are patent bilaterally. The nasal septum is midline. No bony destructive changes are seen within the field of view. IMPRESSION: 1.There is a calcific density at the base of the left maxillary sinus which could reflect ectopic too th measuring 1.4 x 1.1 cm. 2. Chronic sinusitis as discussed.
== END | disposition home or self-care (01) ==
LOC: RADCTMAIN 14:10
PROVIDERS: ATTEND Family Medicine
DX: J32.9 Chronic sinusitis, unspecified (principal); J34.89 Other specified disorders of nose and nasal sinuses; R93.0 Abnormal findings on diagnostic imaging of skull and head, not elsewhere classified
CPT/HCPCS: 70486

== ENCOUNTER 2024-05-05 13:22 | Emergency (ER) | payer MEDICARE ==
[2024-05-05 13:34] VITALS: RESP 18; TEMP 97.9
[2024-05-05 14:35] LABS: Basophils % (A) 0 %; Eosinophils # (A) 0.1 k/uL (0-0.7); Eosinophils % (A) 1 %; HGB 13.2 gm/dL (11.4-16.0); Lymphocytes # (A) 1.9 k/uL (1.0-4.8); Lymphocytes % (A) 29 %; MCH 33.2 pg (25.0-35.0); MCHC 33.9 g/dL (31.0-37.0); MCV 97.9 fL (80.0-100.0); Mean Platelet Volume 8.5; Monocytes # (A) 0.4 k/uL (0-1.0); Monocytes % (A) 6 %; Neutrophils # (A) 3.8 k/uL (1.3-7.7); Neutrophils % (A) 61 %; Platelet Count 155 k/uL (150-450); RBC 3.98 m/uL (3.80-5.40); RDW 13.8 % (11.5-15.5); WBC 6.3 k/uL (3.8-10.6)
[2024-05-05 14:46] LABS: ALT 18 U/L (4-34); AST 26 U/L (14-36); Acetaminophen <10.0 ug/mL; African American GFR (CKD) 75 (>60 ml/min/1.73 sqM); Albumin 4.4 g/dL (3.5-5.0); Alkaline Phosphatase 58 U/L (38-126); Anion Gap 4 mmol/L; Blood Urea Nitrogen 21 mg/dL (7-17); Calcium 9.7 mg/dL (8.4-10.2); Carbon Dioxide 26 mmol/L (22-30); Chloride 106 mmol/L (98-107); Glucose 86 mg/dL (74-99); Non-African American GFR(CKD) 65 (>60 ml/min/1.73 sqM); Potassium 3.8 mmol/L (3.5-5.1); Salicylate <1.0 mg/dL; Sodium 136 mmol/L (137-145); Total Bilirubin 1.1 mg/dL (0.2-1.3); Total Protein 6.1 g/dL (6.3-8.2)
--- NOTE | 2024-05-05 16:11 | ED ---
Psych HPI - General Chief Complaint: Psychiatric Symptoms Stated Complaint: abn labs Time Seen by Provider: 05/05/24 13:30 Source: patient Mode of arrival: ambulatory - History of Present Illness Initial Comments: 84-year-old female presents emergency department with depression. States that she has been depressed her whole life. She went into Dr. Holloway's office and told them that she had been depressed. She followed with psychiatry in the past. States that her symptoms were getting worse again and she was looking for resources. The office sent her to the hospital as they state that this is where she would find resources. Patient denies suicidal ideation. No homicidal ideations. States that she has hopelessness. No drug or alcohol use. No other alleviating, precipitating or modifying factors - Related Data Home Medications Medication Instructions Recorded Confirmed Atenolol/Chlorthalidone 1 tab PO DAILY 12/27/17 03/17/23 [Atenolol/Chlorthalidone 50-25] Atorvastatin Calcium [Lipitor] 10 mg PO DAILY 12/27/17 03/17/23 Levothyroxine Sodium [Synthroid] 88 mcg PO DAILY 12/27/17 03/17/23 buPROPion HCL [buPROPion HCL SR] 150 mg PO BID 12/27/17 03/17/23 traZODone HCL [Desyrel] 100 mg PO HS 12/27/17 03/17/23 Diphenoxylate HCl/Atropine 1 tab PO QID PRN 03/17/23 03/17/23 [Lomotil 2.5-0.025 mg Tablet] Losartan [Cozaar] 25 mg PO DAILY 03/17/23 03/17/23 Magnesium Oxide [Magox 400] 400 mg PO DAILY 03/17/23 03/17/23 Allergies Allergy/AdvReac Type Severity Reaction Status Date / Time No Known Allergies Allergy Verified 05/05/24 13:33 Review of Systems ROS Statement: Those systems with pertinent positive or pertinent negative responses have been documented in the HPI. ROS Other: All systems not noted in ROS Statement are negative. 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 History of Any Multi-Drug Resistant Organisms: None Reported Past Surgical History: Ear Surgery, Hysterectomy Additional Past Surgical History / Comment(s): RT EAR SURG. Past Anesthesia/Blood Transfusion Reactions: No Reported Reaction Past Psychological History: Anxiety, Depression Smoking Status: Never smoker Past Alcohol Use History: None Reported Past Drug Use History: None Reported - Past Family History Brother(s) Family Medical History: Cancer General Exam Limitations: no limitations General appearance: alert, in no apparent distress Head exam: Present: atraumatic, normocephalic, normal inspection Eye exam: Present: normal appearance, PERRL, EOMI. Absent: scleral icterus, conjunctival injection, periorbital swelling ENT exam: Present: normal exam, mucous membranes moist Neck exam: Present: normal inspection. Absent: tenderness, meningismus, lymphadenopathy Respiratory exam: Present: normal lung sounds bilaterally. Absent: respiratory distress, wheezes, rales, rhonchi, stridor Cardiovascular Exam: Present: regular rate, normal rhythm, normal heart sounds. Absent: systolic murmur, diastolic murmur, rubs, gallop, clicks GI/Abdominal exam: Present: soft, normal bowel sounds. Absent: distended, tenderness, guarding, rebound, rigid Extremities exam: Present: normal inspection, full ROM, normal capillary refill. Absent: tenderness, pedal edema, joint swelling, calf tenderness Back exam: Present: normal inspection Neurological exam: Present: alert, oriented X3, CN II-XII intact Psychiatric exam: Present: depressed Skin exam: Present: warm, dry, intact, normal color. Absent: rash Course Vital Signs 05/05/24 05/05/24 13:30 15:45 Temperature 97.9 F Pulse Rate 79 76 Respiratory 18 18 Rate Blood Pressure 128/87 128/78 O2 Sat by Pulse 100 97 Oximetry Medical Decision Making - Medical Decision Making Was pt. sent in by a medical professional or institution (, PA, EQUALIZER OPERATOR, urgent care, hospital, or [facility]...) When possible be specific @ -Patient sent in from Dr. Holloway office Did you speak to anyone other than the patient for history (EMS, parent, family, police, friend...)? What history was obtained from this source @ -No Did you review nursing and triage notes (agree or disagree)? Why? @ -I reviewed and agree with nursing and triage notes Were old charts reviewed (outside hosp., previous admission, EMS record, old EKG, old radiological studies, urgent care reports/EKG's, [facility] records)? Report findings @ -No old charts were reviewed Differential Diagnosis (chest pain, altered mental status, abdominal pain women, abdominal pain men, vaginal bleeding, weakness, fever, dyspnea, syncope, headache, dizziness, GI bleed, back pain, seizure, CVA, palpatations, mental health, musculoskeletal)? @ -Depression, anxiety, suicidal EKG interpreted by me (3pts min.). @ -Not done X-rays interpreted by me (1pt min.). @ -None done CT interpreted by me (1pt min.). @ -None done U/S interpreted by me (1pt. min.). @ -None done What testing was considered but not performed or refused? (CT, X-rays, U/S, labs)? Why? @ -I wanted the patient to be evaluated by EPS however she states she does not want to wait What meds were considered but not given or refused? Why? @ -None Did you discuss the management of the patient with other professionals (professionals i.e. , PA, EQUALIZER OPERATOR, lab, RT, psych nurse, social service director, manager completions, teacher, combat information center officer, case fitter)? Give summary @ -I spoke with the EPS and asked them to evaluate the patient Was smoking cessation discussed for >3mins.? @ -No Was critical care preformed (if so, how long)? @ -No Were there social determinants of health that impacted care today? How? (Homelessness, low income, unemployed, alcoholism, drug addiction, transportation, low edu. Level, literacy, decrease access to med. care, assisted, rehab)? @ -No Was there de-escalation of care discussed even if they declined (Discuss DNR or withdrawal of care, Hospice)? DNR status @ -No What co-morbidities impacted this encounter? (DM, HTN, Smoking, COPD, CAD, Cancer, CVA, ARF, Chemo, Hep., AIDS, mental health diagnosis, sleep apnea, morbid obesity)? @ -None Was patient admitted / discharged? Hospital course, mention meds given and route, prescriptions, significant lab abnormalities, going to OR and other pertinent info. @ -Upon arrival patient seen and evaluated in room 9. Thorough history and physical exam was performed. Patient admits to depression. States that this is chronic for her. She does want to get back into counseling. I did request that the EPS nurse see her. Patient is in the ER for a couple of hours before she starts getting agitated. Patient thought that she was coming in for referrals. She does not want to wait any longer as she states she is getting her hair done at 6:00. Patient is not petitioned. She wants to leave. Patient will be discharged at this time. I instructed her that I could not provide her with any resources unless EPS sees her. Patient understood this. States that she will get back into counseling on her own as "she has done it before in the past." Undiagnosed new problem with uncertain prognosis? @ -No Drug Therapy requiring intensive monitoring for toxicity (Heparin, Nitro, Insulin, Cardizem)? @ -No Were any procedures done? @ -No Diagnosis/symptom? @ -Chronic depression Acute, or Chronic, or Acute on Chronic? @ -Chronic Uncomplicated (without systemic symptoms) or Complicated (systemic symptoms)? @ -Complicated Side effects of treatment? @ -No Exacerbation, Progression, or Severe Exacerbation? @ -No Poses a threat to life or bodily function? How? (Chest pain, USA, OR, pneumonia, PE, COPD, DKA, ARF, appy, cholecystitis, CVA, Diverticulitis, Homicidal, Suicidal, threat to staff... and all critical care pts) @ -No - Lab Data Result diagrams: 05/05/24 14:10 05/05/24 14:10 Lab Results 05/05/24 05/05/24 Range/Units 14:10 14:10 WBC 6.3 (3.8-10.6) k/uL RBC 3.98 (3.80-5.40) m/uL Hgb 13.2 (11.4-16.0) gm/dL Hct 39.0 (34.0-46.0) % MCV 97.9 (80.0-100.0) fL MCH 33.2 (25.0-35.0) pg MCHC 33.9 (31.0-37.0) g/dL RDW 13.8 (11.5-15.5) % Plt Count 155 (150-450) k/uL MPV 8.5 Neutrophils % 61 % Lymphocytes % 29 % Monocytes % 6 % Eosinophils % 1 % Basophils % 0 % Neutrophils # 3.8 (1.3-7.7) k/uL Lymphocytes # 1.9 (1.0-4.8) k/uL Monocytes # 0.4 (0-1.0) k/uL Eosinophils # 0.1 (0-0.7) k/uL Basophils # 0.0 (0-0.2) k/uL Sodium 136 L (137-145) mmol/L Potassium 3.8 (3.5-5.1) mmol/L Chloride 106 (98-107) mmol/L Carbon Dioxide 26 (22-30) mmol/L Anion Gap 4 mmol/L BUN 21 H (7-17) mg/dL Creatinine 0.84 (0.52-1.04) mg/dL Est GFR (CKD-EPI)AfAm 75 (>60 ml/min/1.73 sqM) Est GFR (CKD-EPI)NonAf 65 (>60 ml/min/1.73 sqM) Glucose 86 (74-99) mg/dL Calcium 9.7 (8.4-10.2) mg/dL Total Bilirubin 1.1 (0.2-1.3) mg/dL AST 26 (14-36) U/L ALT 18 (4-34) U/L Alkaline Phosphatase 58 (38-126) U/L Total Protein 6.1 L (6.3-8.2) g/dL Albumin 4.4 (3.5-5.0) g/dL Salicylates <1.0 mg/dL Acetaminophen <10.0 ug/mL Disposition Clinical Impression: Depression Disposition: HOME SELF-CARE Condition: Stable Instructions (If sedation given, give patient instructions): Depression (ED) Additional Instructions: We recommended that you see EPS. Please follow-up with [facility]. Return for any new or worsening symptoms Is patient prescribed a controlled substance at d/c from ED?: No Referrals: Dean Holloway MD [Primary Care Provider] - 1-2 days Time of Disposition: 16:11
[2024-05-05 19:00] VITALS: BP 128/78; PULSE 76
== END 2024-05-05 17:05 | disposition home or self-care (01) ==
LOC: EC 13:22
DX: F32.A Depression, unspecified (principal)
CPT/HCPCS: 36415; 80053; 80143; 80179; 82075; 85025; 99283